=== PATIENT | female | born 1960 | race Caucasian/White ===

== ENCOUNTER 2022-08-22 12:50 | Outpatient (CLI) | payer OTHER, SELFPAY ==
--- NOTE | 2022-08-22 13:00 | CRLHL7_ITS ---
For Patients: As a result of the Cures Act, medical imaging exams and procedure reports are released immediately into your electronic medical record. You may view this report before your referring provider. If you have questions, please contact your health care provider. BILATERAL SCREENING MAMMOGRAM WITH COMPUTER-AIDED DETECTION AND TOMOSYNTHESIS TECHNIQUE: CC and MLO views were obtained. These mammographic images have been obtained using full-field digital technique. These mammographic images were interpreted with the benefit of computer-aided detection. Breast tomosynthesis was used in this interpretation. COMPARISON FILM: 07/16/21, 09/13/18, 12/02/16. FINDINGS: The breasts are almost entirely fatty. IMPRESSION: There is no radiographic evidence for malignancy. ASSESSMENT: BI-RADS Category 1: Negative RECOMMENDATION: Routine screening mammogram in 1 year. A lay language report of this examination will be provided to the patient. ALLISON MENDOZA M.D. Diagnostic/Nuclear Medicine Radiologist [email or web address] Transcribed: 08/23/2022, 3:[address]/Dictated by: Allison Mendoza MD @ 08/23/2022 8:14:00 AM (Electronically Signed)
== END 2022-08-22 12:51 | disposition home or self-care (01) ==
LOC: MAMMO 12:50
PROVIDERS: Visit Provider Physician Assistant Medical
DX: Z12.31 Encounter for screening mammogram for malignant neoplasm of breast (principal)
CPT/HCPCS: 77063; 77067

== ENCOUNTER 2022-11-24 14:21 | Outpatient (CLI) | payer OTHER, SELFPAY ==
--- NOTE | 2022-11-24 14:30 | CRLHL7_ITS ---
For Patients: As a result of the Century Cures Act, medical imaging exams and procedure reports are released immediately into your electronic medical record. You may view this report before your referring provider. If you have questions, please contact your health care provider. DXA BONE MINERAL DENSITY STUDY Current height (in): 64.0. Weight (lb): 213.0. Menopause age: 42. Ethnicity: White. Reason for exam: Post menopausal. 1. Have you had a previous hip or vertebral fracture? Yes. 2. Have you had any fractures during your adult life which did not result from significant trauma (e.g., auto accident)? Yes. 3. Did either of your parents have a hip fracture? No. 4. Do you smoke? No. 5. Have you ever taken Glucocorticoids? No. 6. Do you have rheumatoid arthritis? No. 7. Do you have secondary osteoporosis? No. 8. Do you drink 3 or more alcoholic drinks per day? No. 9. Are you being treated for osteoporosis? No. 10. Have you ever taken any of the following medications: Actonel, Evista, Fosamax, Miacalcin, Reclast, Boniva, Forteo, HRT (i.e. estrogen/hormone therapy), Protelos, Prolia, Vitamin D, Calcium, other ??? please specify. ANSWER: Yes, vitamin D. 11. Do you have any of the following medical conditions: Anorexia or bulimia, asthma or emphysema, end stage renal disease, hyperparathyroidism, any seizure disorders, cancer, inflammatory bowel diseases, hysterectomy, other ??? please specify. ANSWER: Yes, hysterectomy. 12. What was your maximum height (inches)? 64. 13. Do you perform weight bearing exercise regularly? No. 14. Do you regularly consume dairy products? Yes. 15. Do you drink caffeinated beverages? Yes. 16. At what age did your period start? 14. 17. Are you premenopausal? No. 18. How many full-term pregnancies have you had? 4. 19. Have you ever missed your period for more than 6 months in a row (not including or menopause)? No. TECHNIQUE: Bone mineral density study was performed using the [employer]. FINDINGS: The results of the study expressed as bone mineral density (BMD) are as follows: Lumbar spine L1 to L4: BMD: 1.283 g/cm2. T-score: 2.1. Z-score: 3.7. Neck Left: BMD: 0.818 g/cm2. T-score: -0.3. Z-score: 1.1. Right: BMD: 0.723 g/cm2. T-score: -1.1. Z-score: 0.2. Total Left: BMD: 1.002 g/cm2. T-score: 0.5. Z-score: 1.5. Right: BMD: 0.924 g/cm2. T-score: -0.1. Z-score: 0.9. IMPRESSION: Osteopenia. Minesh Diehl M.D. Diagnostic/Nuclear Medicine Radiologist [email or web address] Transcribed: 11:[address]/Dictated by: Minesh Diehl MD @ 11/25/2022 10:13:00 AM (Electronically Signed)
== END 2022-11-24 14:22 | disposition home or self-care (01) ==
LOC: RAD 14:22
PROVIDERS: PCP Physician Assistant Medical; Visit Provider Physician Assistant Medical
DX: Z78.0 Asymptomatic menopausal state (principal); M85.89 Other specified disorders of bone density and structure, multiple sites
CPT/HCPCS: 77080

== ENCOUNTER 2024-04-18 08:08 | Outpatient (CLI) | payer OTHER, SELFPAY | END 2024-04-18 08:09 | disposition home or self-care (01) | LOC: NFLDREF 04-19 08:36 | PROVIDERS: PCP Physician Assistant Medical; Referring Provider Physician Assistant Medical; Visit Provider Physician Assistant Medical | DX: Z00.00 Encounter for general adult medical examination without abnormal findings (principal); E55.9 Vitamin D deficiency, unspecified; E03.9 Hypothyroidism, unspecified; E78.2 Mixed hyperlipidemia; R41.89 Other symptoms and signs involving cognitive functions and awareness; G47.00 Insomnia, unspecified; F51.01 Primary insomnia; M54.9 Dorsalgia, unspecified; N95.1 Menopausal and female climacteric states | CPT/HCPCS: 80053; 80061; 82306; 82607; 82728; 84443 ==

== ENCOUNTER 2024-07-05 10:33 | Outpatient (CLI) | payer OTHER, SELFPAY ==
--- NOTE | 2024-07-05 10:45 | CRLHL7_ITS ---
For Patients: As a result of the Cures Act, medical imaging exams and procedure reports are released immediately into your electronic medical record. You may view this report before your referring provider. If you have questions, please contact your health care provider. BILATERAL SCREENING MAMMOGRAM WITH COMPUTER-AIDED DETECTION AND TOMOSYNTHESIS TECHNIQUE: CC and MLO views were obtained. These mammographic images have been obtained using full-field digital technique. These mammographic images were interpreted with the benefit of computer-aided detection. Breast Tomosynthesis was used in this interpretation. COMPARISON FILM: 08/22/22, 07/16/21, 09/13/18. FINDINGS: The breasts are almost entirely fatty IMPRESSION: There is no radiographic evidence for malignancy. ASSESSMENT: BI-RADS Category 2: Benign RECOMMENDATION: Routine screening mammogram in 1 year. A lay language report of this examination will be provided to the patient. Dequan Baptiste M.D. Diagnostic Radiologist [email or web address] Transcribed: 3:39 p.mRobert jack/Dictated by: Dequan Baptiste MD @ 07/09/2024 10:01:00 AM (Electronically Signed)
== END 2024-07-05 10:34 | disposition home or self-care (01) ==
LOC: MAMMO 10:34
PROVIDERS: PCP Physician Assistant Medical; Visit Provider Physician Assistant Medical
DX: Z12.31 Encounter for screening mammogram for malignant neoplasm of breast (principal)
CPT/HCPCS: 77063; 77067

== ENCOUNTER 2025-02-13 10:36 | Outpatient (CLI) | payer OTHER, SELFPAY | END 2025-02-13 10:37 | disposition home or self-care (01) | LOC: NFLDREF 02-15 08:14 | PROVIDERS: PCP Physician Assistant Medical; Referring Provider Physician Assistant Medical; Visit Provider Physician Assistant Medical | DX: R10.9 Unspecified abdominal pain (principal); M54.9 Dorsalgia, unspecified; Z87.442 Personal history of urinary calculi | CPT/HCPCS: 87086 ==

== ENCOUNTER 2025-02-20 08:48 | Outpatient (CLI) | payer OTHER, SELFPAY ==
--- NOTE | 2025-02-20 09:00 | CRLHL7_ITS ---
For Patients: As a result of the Century Cures Act, medical imaging exams and procedure reports are released immediately into your electronic medical record. You may view this report before your referring provider. If you have questions, please contact your health care provider. INDICATION: Right flank pain. COMPARISON: None. TECHNIQUE: CT abdomen and pelvis without intravenous contrast; coronal and sagittal reformats. FINDINGS: No nodules in the lung bases. No evidence of pleural effusion. No focal hepatic or splenic pathology. Small low densities identified in the right hepatic lobe; no previous imaging available for comparison; they may represent cysts. No splenic pathology. No pancreatic pathology. Gallbladder is unremarkable. The right adrenal gland is unremarkable. A 1.8 cm nodule identified in the medial limb right adrenal gland inferiorly and a 0.9 cm nodule in the medial limb left adrenal gland superiorly. Left kidney is unremarkable. Renal calculi lower pole calyx right kidney. Dilated right intrarenal collecting system. Possible UPJ obstruction on the right. No evidence of dilatation of the right ureter. No right ureteral calculi. Diverticulosis sigmoid colon without any CT evidence of diverticulitis or abscess. CT of the pelvis is unremarkable. IMPRESSION: 1. 5 mm nonobstructing calculus lower pole calyx right kidney. 2. Dilated right intrarenal collecting system ; rule out UPJ obstruction; CT urogram suggested. 3. No evidence of dilatation of the right ureter and no evidence of right ureteral calculi. 4. Nodules left adrenal gland; indeterminate; suggest MRI of the abdomen for further assessment. 5. Multiple cystic lesions right lobe of the liver; MR of the liver is suggested for further assessment. 6. Diverticulosis sigmoid colon without any CT evidence of diverticulitis or abscess. Please note that all CT scans at this facility use dose modulation, iterative reconstruction, and/or weight-based dosing when appropriate to reduce radiation dose to as low as reasonably achievable. Dictated by Lili Weston MD @ 02/24/2025 2:02:32 PM (Electronically Signed)
== END 2025-02-20 08:49 | disposition home or self-care (01) ==
LOC: CT 08:48
PROVIDERS: PCP Physician Assistant Medical; Visit Provider Physician Assistant Medical
DX: R10.9 Unspecified abdominal pain (principal); N20.0 Calculus of kidney; Z87.442 Personal history of urinary calculi; E27.9 Disorder of adrenal gland, unspecified; K76.89 Other specified diseases of liver; K57.30 Diverticulosis of large intestine without perforation or abscess without bleeding
CPT/HCPCS: 74176

== ENCOUNTER 2025-03-13 11:22 | Outpatient (CLI) | payer OTHER, SELFPAY ==
--- NOTE | 2025-03-13 12:00 | CRLHL7_ITS ---
For Patients: As a result of the Century Cures Act, medical imaging exams and procedure reports are released immediately into your electronic medical record. You may view this report before your referring provider. If you have questions, please contact your health care provider. INDICATION: CROSSING VESSEL AND STRICTURE OF URETER WO HYDRONEPHROSIS TECHNIQUE: CT abdomen and pelvis urogram without and with 100 cc Isovue 350 IV contrast. Contrast images were obtained in the nephrographic and delayed phases. COMPARISON: 02/20/2025 FINDINGS: KIDNEYS: Right renal calculi are again noted measuring up to 5 millimeters. The kidneys are normal in caliber and demonstrate normal uptake and excretion of IV contrast. Multiple right parapelvic cysts are present. Smaller sub cm cysts are present elsewhere within the right kidney. The renal collecting systems and ureters are symmetrical, normal in caliber, and without evidence of mass or filling defect. URINARY BLADDER: The urinary bladder is normal in caliber and without evidence of mass, wall thickening, or inflammation. OTHER: Mild dependent atelectasis/scarring within both lower lobes. Benign intrahepatic cysts are present. Gallbladder is normal. Normal pancreas. The spleen is normal. Stable appearance of the left adrenal gland with 2 nodules present measuring up to 1.8 cm. The right adrenal gland is normal. Normal ovaries. No pelvic mass. No bowel obstruction or free air. No free fluid or abscess. No adenopathy. Degenerative changes. No fracture. IMPRESSION: 1. Multiple right kidney parapelvic cysts without hydronephrosis. Nonobstructing right renal calculi noted. 2. Similar left adrenal gland nodules and intrahepatic cysts. Please note that all CT scans at this facility use dose modulation, iterative reconstruction, and/or weight-based dosing when appropriate to reduce radiation dose to as low as reasonably achievable. Dictated by Dequan Baptiste MD @ 03/13/2025 3:57:44 PM (Electronically Signed)
[2025-03-13 12:26] LABS: Creatinine* 0.9 mg/dL (0.5-1.5); Estimated Glomerular Filt Rate 72 ml/min
--- NOTE | 2025-03-13 13:00 | CRLHL7_ITS ---
For Patients: As a result of the Cures Act, medical imaging exams and procedure reports are released immediately into your electronic medical record. You may view this report before your referring provider. If you have questions, please contact your health care provider. INDICATION: Liver lesions; nodule left adrenal gland; further assessment. COMPARISON: CT abdomen and pelvis without intravenous contrast February 20, 2025; CT urogram March 13, 2025. TECHNIQUE: MRI of the abdomen without and with intravenous contrast; precontrast T1 and T2 weighted imaging; T2 haste imaging; diffusion-weighted imaging; in- and out of phase imaging; postcontrast imaging including subtraction; 20 cc of dotarem contrast was injected IV. FINDINGS: Multiple simple hepatic cysts. No enhancing lesions identified within the liver. No splenic pathology. The gallbladder is unremarkable. No evidence of biliary duct dilatation. Pancreas divisum. The pancreatic duct is prominent measuring 4.7 mm in diameter without any evidence of obstruction. No mass lesions identified within the pancreas. Nodule left adrenal gland with signal dropout on the out of phase imaging indicating a lipid rich adenoma. Peripelvic cyst right kidney. Left kidney is unremarkable. No enhancing lesions in the kidneys on either side. Impression: 1. Pancreas divisum. 2. Prominent pancreatic duct without any cause for obstruction. 3. Simple hepatic cysts. 4. Peripelvic cyst right kidney. 5. Nodular left adrenal gland with signal dropout on the out of phase imaging indicating a lipid rich adenoma. Dictated by Lili Weston MD @ 03/17/2025 10:33:57 AM (Electronically Signed)
== END 2025-03-13 11:23 | disposition home or self-care (01) ==
LOC: CT 11:23
PROVIDERS: PCP Physician Assistant Medical; Visit Provider Physician Assistant Medical
DX: K76.89 Other specified diseases of liver (principal); N28.1 Cyst of kidney, acquired; K86.9 Disease of pancreas, unspecified; E27.9 Disorder of adrenal gland, unspecified; N13.5 Crossing vessel and stricture of ureter without hydronephrosis
CPT/HCPCS: 36415; 74178; 74183; 82565; A9575; Q9967